=== PATIENT | female | born 1995 | race Two or more races ===

== ENCOUNTER 2016-10-15 00:38 | Observation (INO) | payer MEDICAID ==
--- NOTE | 2016-10-15 01:01 | EDPHY ---
H & P Stated Complaint: suprapubic pain, vomiting, recent constipation HPI/ROS: HPI CHIEF COMPLAINT: Nausea, vomiting, constipation, diarrhea, lower abdominal pain HISTORY OF PRESENT ILLNESS: This patient very pleasant 21-year-old female denies any significant medical history surgical history she presents emergency room 1 o'clock in the morning by private vehicle from lower abdominal pain. Patient states that she has been suffering from constipation recently and has not had a good bowel movement in a few days she thinks about 3. Friend suggested she take laxative she did take a laxative and this gave her some watery loose stools and then she developed nausea vomiting. She tells me she had approximately 10 episodes of vomiting. Nonbilious nonbloody. Watery diarrhea. And now she is complaining of 6/10 right lower quadrant abdominal pain. Denies being . Denies chest pain or shortness of breath. Denies fever. Past Medical History: Denies significant medical history Past Surgical History: Denies significant surgical history Social History: denies use of drugs alcohol tobacco products Family History: Noncontributory ROS REVIEW OF SYSTEMS: A comprehensive 10 point review of systems is otherwise negative aside from elements mentioned in the history of present illness. Exam Constitutional appears well nontoxic, triage nursing summary reviewed, vital signs reviewed, awake/alert. Eyes normal conjunctivae and sclera, EOMI, PERRLA. HENT normal inspection, atraumatic, moist mucus membranes, no epistaxis, neck supple/ no meningismus, no raccoon eyes. Respiratory clear to auscultation bilaterally, normal breath sounds, no respiratory distress, no wheezing. Cardiovascular rate normal, regular rhythm, no murmur, no edema, distal pulses normal. Gastrointestinal soft, tender palpation right lower quadrant, no peritoneal signs, no rebound, no guarding, normal bowel sounds, no distension, no pulsatile mass. Genitourinary no CVA tenderness. Musculoskeletal no midline vertebral tenderness, full range of motion, no calf swelling, no tenderness of extremities, no meningismus, good pulses, neurovascularly intact. Skin pink, warm, & dry, no rash, skin atraumatic. Neurologic awake, alert and oriented x 3, AAOx3, moves all 4 extremities equally, motor intact, sensory intact, CN II-XII intact, normal cerebellar, normal vision, normal speech. Psychiatric normal mood/affect. Heme/Lymph/Immune no lymphadenopathy. Differential diagnosis includes but is not limited to and in no particular order : Acute appendicitis, enteritis, constipation Bowel obstruction, gallbladder disease, diverticulitis, colitis, enteritis, perforated viscus, gastritis, GERD , esophagitis, urinary tract infection, pyelonephritis, kidney stones Medical Decision Making: Plan for this patient this patient had an IV established will obtain blood work including abdominal labs, should be hydrated gently with normal saline, IV Zofran for nausea check urinalysis, test , patient had a CT scan abdomen pelvis with IV contrast to rule out acute appendicitis. Re-evaluation: 0211: CT scan of the abdomen pelvis with IV contrast The results of the study are shows acute appendicitis, dilated appendix, Appendocliths. The study was read by Dr. Hirsch. I viewed the images myself on the PACS system. 0211: this patient has acute appendicitis seen on the CT scan and surgery will be consulted. I have ordered IV Invanz. Patient is made NPO. Patient updated. Re-examination her abdomen is tender right lower quadrant no peritoneal signs. Blood work is noted for white count [id number]. She is hemodynamically stable. Will be admitted to the hospital for surgery for acute appendectomy. Surgery has been consulted. Source: Patient - Personal History LMP (Females 10-55): 15-21 Days Ago Current Tetanus/Diphtheria Vaccine: Yes Current Tetanus Diphtheria and Acellular Pertussis (TDAP): Yes - Medical/Surgical History Hx Asthma: Yes Hx Chronic Respiratory Disease: No Hx Diabetes: No Hx Cardiac Disease: No Hx Renal Disease: No Hx Cirrhosis: No Hx Alcoholism: No Hx HIV/AIDS: No Hx Splenectomy or Spleen Trauma: No Other PMH: asthma - Social History Smoking Status: Never smoked Constitutional: Initial Vital Signs Temperature (C) 37.1 C 10/15/16 00:42 Heart Rate 90 10/15/16 00:42 Respiratory Rate 16 10/15/16 00:42 Blood Pressure 108/68 10/15/16 00:42 O2 Sat (%) 96 10/15/16 00:42 O2 Delivery Mode Room Air Allergies/Adverse Reactions: adhesive tape Allergy (Verified 10/15/16 00:47) honey Allergy (Verified 10/15/16 00:47) Home Medications: Medication Instructions Recorded Ortho Tri-Cyclen Lo Tablet 10/15/16 Medical Decision Making - Data Points Laboratory Results: Laboratory Results 10/15/16 01:15 02/24/17 01:15 10/15/16 10/15/16 10/15/16 01:15 01:15 01:15 WBC 20.78 10^3/uL H 10^3/uL (3.80-9.50) RBC 4.36 10^6/uL 10^6/uL (4.18-5.33) Hgb 13.1 g/dL g/dL (12.6-16.3) Hct 38.2 % % (38.0-47.0) MCV 87.6 fL fL (81.5-99.8) MCH 30.0 pg pg (27.9-34.1) MCHC 34.3 g/dL g/dL (32.4-36.7) RDW 13.1 % % (11.5-15.2) Plt Count 283 10^3/uL 10^3/uL (150-400) MPV 10.1 fL fL (8.7-11.7) Neut % (Auto) 89.4 % H % (39.3-74.2) Lymph % (Auto) 6.1 % L % (15.0-45.0) [place] % (Auto) 3.9 % L % (4.5-13.0) Eos % (Auto) 0.0 % L % (0.6-7.6) Baso % (Auto) 0.2 % L % (0.3-1.7) Nucleat RBC Rel Count 0.0 % % (0.0-0.2) Absolute Neuts (auto) 18.56 10^3/uL H 10^3/uL (1.70-6.50) Absolute Lymphs (auto) 1.27 10^3/uL 10^3/uL (1.00-3.00) Absolute Monos (auto) 0.82 10^3/uL H 10^3/uL (0.30-0.80) Absolute Eos (auto) 0.00 10^3/uL L 10^3/uL (0.03-0.40) Absolute Basos (auto) 0.05 10^3/uL 10^3/uL (0.02-0.10) Absolute Nucleated RBC 0.00 10^3/uL 10^3/uL (0-0.01) Immature Gran % 0.4 % % (0.0-1.1) Immature Gran # 0.08 10^3/uL 10^3/uL (0.00-0.10) Sodium 142 mEq/L mEq/L (134-144) Potassium 4.2 mEq/L mEq/L (3.5-5.2) Chloride 106 mEq/L mEq/L (97-110) Carbon Dioxide 22 mEq/l mEq/l (22-31) Anion Gap 14 mEq/L mEq/L (8-16) BUN 8 mg/dL mg/dL (7-23) Creatinine 0.6 mg/dL mg/dL (0.6-1.0) Estimated GFR > 60 Glucose 110 mg/dL H mg/dL (70-100) Calcium 10.2 mg/dL mg/dL (8.5-10.4) Total Bilirubin 0.9 mg/dL mg/dL (0.1-1.4) Conjugated Bilirubin 0.3 mg/dL mg/dL (0.0-0.5) Unconjugated Bilirubin 0.6 mg/dL mg/dL (0.0-1.1) AST 24 IU/L IU/L (14-46) ALT 34 IU/L IU/L (9-52) Alkaline Phosphatase 97 IU/L IU/L (38-126) Total Protein 8.4 g/dL H g/dL (6.3-8.2) Albumin 4.9 g/dL g/dL (3.5-5.0) Lipase 39.0 IU/L IU/L (23-300) Beta HCG, Qual NEGATIVE Medications Given: Discontinued Medications Sodium Chloride (Ns) 1,000 mls @ 0 mls/hr IV ONCE ONE PRN Reason: Wide Open Stop: 10/15/16 01:04 Last Admin: 10/15/16 01:15 Dose: 1,000 mls Ondansetron HCl (Zofran) 4 mg IVP EDNOW ONE Stop: 10/15/16 01:04 Last Admin: 10/15/16 01:15 Dose: 4 mg Departure - Departure Disposition: [facility] Acute Clinical Impression: Acute appendicitis Qualifiers: Acute appendicitis type: with localized peritonitis Qualified Code(s): K35.3 - Acute appendicitis with localized peritonitis Condition: Fair Referrals: NONE *PRIMARY CARE P,. [Primary Care Provider] - As per Instructions
[2016-10-15] MEDS ORDERED: NS 1,000 ML IV ONE (01:03)
[2016-10-15] MEDS ORDERED: ONDANSETRON 4 MG/2 ML VIAL IVP ONE ×2 (01:03→02:19)
[2016-10-15] MEDS ORDERED: IOPAMIDOL (ISOVUE-300) 100 ML BTL IV ONE (01:07)
[2016-10-15 01:29] LABS: % IMMATURE GRANULYOCYTES 0.4 % (0.0-1.1); ABSOLUTE IMMATURE GRANULOCYTES 0.08 10^3/uL (0.00-0.10); ADD DIFF? NO; ADD MORPH? NO; ADD SCAN? NO; ATYPICAL LYMPHOCYTE FLAG 10 (0-99); FRAGMENT RBC FLAG 0 (0-99); HEMATOCRIT 38.2 % (38.0-47.0); HEMOGLOBIN 13.1 g/dL (12.6-16.3); LEFT SHIFT FLG 0 (0-99); LIPEMIA HEMOLYSIS FLAG 90 (0-99); MEAN CELL HEMOGLOBIN CONCENTR. 34.3 g/dL (32.4-36.7); MEAN CELL VOLUME 87.6 fL (81.5-99.8); MEAN PLATELET VOLUME 10.1 fL (8.7-11.7); PLATELET CLUMPS FLAG 0 (0-99); PLATELET COUNT 283 10^3/uL (150-400); RED BLOOD CELL COUNT 4.36 10^6/uL (4.18-5.33); RED CELL DISTRIBUTION WIDTH 13.1 % (11.5-15.2)
[2016-10-15 01:39] LABS: ALANINE AMINOTRANSFERASE 34 IU/L (9-52); ALBUMIN 4.9 g/dL (3.5-5.0); ALKALINE PHOSPHATASE 97 IU/L (38-126); ANION GAP 14 mEq/L (8-16); ASPARTATE AMINOTRANSFERASE 24 IU/L (14-46); BILIRUBIN,TOTAL 0.9 mg/dL (0.1-1.4); BILIRUBIN-CONJUGATED 0.3 mg/dL (0.0-0.5); BILIRUBIN-UNCONJUGATED 0.6 mg/dL (0.0-1.1); CALCIUM 10.2 mg/dL (8.5-10.4); CARBON DIOXIDE 22 mEq/l (22-31); CHLORIDE 106 mEq/L (97-110); CREATININE 0.6 mg/dL (0.6-1.0); GLOMERULAR FILTRATION RATE > 60; GLUCOSE 110 mg/dL (70-100); POTASSIUM 4.2 mEq/L (3.5-5.2); SODIUM 142 mEq/L (134-144); TOTAL PROTEIN 8.4 g/dL (6.3-8.2)
[2016-10-15] MEDS ORDERED: ERTAPENEM 1 GM in NS 100 ML IV ONE (02:11)
[2016-10-15] MEDS ORDERED: HYDROmorphONE/DILAUDID 1 MG/ML SYR IVP ONE (02:19)
[2016-10-15] MEDS ORDERED: HYDROCODONE/APAP 5/325 TAB PO PRN (02:46)
[2016-10-15] MEDS ORDERED: ONDANSETRON 4 MG/2 ML VIAL IVP PRN (02:47)
[2016-10-15] MEDS ORDERED: SKIN ADHESIVE (DERMABOND) 1 EACH TP ONE (02:51)
[2016-10-15] MEDS ORDERED: BUPIVACAINE 0.5% 30 ML SDV ONE (02:51)
[2016-10-15] MEDS ORDERED: D5W 1/2 NS W/ 20 KCl/L 1,000 ML IV SCH (03:00)
[2016-10-15] MEDS ORDERED: MIDAZOLAM 2 MG/2 ML VIAL ONE (03:26)
[2016-10-15] MEDS ORDERED: fentaNYL 100 MCG/2 ML INJ ONE ×2 (03:32)
[2016-10-15] MEDS ORDERED: PROPOFOL/EMULSION 500 MG/50 ML BOTTLE IV ONE (03:32)
--- NOTE | 2016-10-15 03:43 | GHP ---
DATE OF ADMISSION: 10/15/2016 CHIEF COMPLAINT: Acute appendicitis. HISTORY OF PRESENT ILLNESS: The patient 21-year-old woman, who developed abdominal pain. She thought she was constipated and so she took a couple laxatives. The pain increased in severity. She also had emesis, and she ultimately presented to the emergency room. She had a white count of 20,[address] scan showing appendicitis. Nothing made the pain better. PAST MEDICAL HISTORY: None. PAST SURGICAL HISTORY: Tonsils and adenoids. MEDICATIONS: Ortho Tri-Cyclen. ALLERGIES: No known drug allergies. SOCIAL HISTORY: She denies tobacco use. FAMILY HISTORY: Her father also had appendicitis. REVIEW OF SYSTEMS: 10 point review of system negative except per HPI. PHYSICAL EXAMINATION: General: Pleasant, well nourished, well groomed, lying in bed. HEENT: Normocephalic. No gross hearing deficits. Mucous membranes moist. Pupils equal and round. No scleral icterus. LUNGS: Clear to auscultation bilaterally. No increased work of breathing. CARDIAC: Regular rate. ABDOMEN: Bowel sounds present. Soft, tender in the abdomen. SKIN: Warm and dry. PSYCH: Tearful. IMPRESSION AND PLAN: The patient is a 21-year-old with acute appendicitis. I will take her to the operating room for a laparoscopic appendectomy. The risks and benefits, including, but not limited to, stroke, heart attack, , blood clots, infection, bleeding, damage to bowel or bladder were discussed. Her test was negative. She is receiving Invanz in the ER. She had her questions answered to her satisfaction and signed the informed consent. /[id number]/MODL MTDD
[2016-10-15] MEDS ORDERED: ROCURONIUM 50 MG/5 ML VIAL ONE (04:02)
[2016-10-15] MEDS ORDERED: SUGAMMADEX SODIUM 200 MG/2 ML VIAL IVP ONE (04:03)
--- NOTE | 2016-10-15 04:13 | POSTOPPROG ---
Post Op Note Date of Operation: 10/15/16 Surgeon: Eva Day Anesthesiologist: guillermina Anesthesia: GET(General Endotracheal) Pre-op Diagnosis: acute appy Post-op Diagnosis: same Indication: 21 yo with acute appy Procedure: lap appy Findings: inflamed appendix Inf/Abcess present in the surg proc area at time of surgery?: No Depth: Superfical (Skin SQ) Specimen(s): appendix
--- NOTE | 2016-10-15 04:28 | GOP ---
DATE OF OPERATION: 10/15/2016 SURGEON: Eva Day MD ANESTHESIA: General. ANESTHESIOLOGIST: Mary Alice Paiz MD PREOPERATIVE DIAGNOSIS: Acute appendicitis. POSTOPERATIVE DIAGNOSIS: Acute appendicitis. PROCEDURE PERFORMED: Laparoscopic appendectomy. FINDINGS: Inflamed appendix. SPECIMENS: Appendix. ESTIMATED BLOOD LOSS: 5 cc. INDICATIONS: The patient is a 21-year-old woman who developed abdominal pain. CT scan confirmed ap pendicitis. DESCRIPTION OF PROCEDURE: The patient was brought into the operating room, placed supine on the tab le, and general anesthesia was administered. Her abdomen was prepped and draped in usual sterile fa shion. I infiltrated all sites with 0.5% Marcaine prior to making incisions. I elevated her umbili cus. I inserted the Veress needle, it passed the hanging drop test. Her abdomen insufflated easily to a pressure of 15 mmHg. I placed a 5 mm trocar with a camera at this site. Under direct vision, I placed a 5 mm suprapubic trocar and a 10 mm trocar in the left lower quadrant. I grasped her tip of the appendix. I divided the mesoappendix with the Harmonic and I divided the base with an Endo- JAYLON 45. Hemostasis was achieved on the staple line. I placed the appendix in an EndoCatch bag and retrieved it via the 10 mm trocar. I explored her abdomen. No injuries were noted. I closed the f ascia at the 10 mm trocar site with 0 Vicryl. Skin closed with 4-0 Monocryl. Dermabond applied. S he was awakened in the operating room, extubated, transferred to PACU in stable condition. /[id number]/MODL
[2016-10-15 09:20] VITALS: TEMP 98.2
--- NOTE | 2016-10-15 10:09 | SOAPPROG ---
SOAP Progress Note Assessment/Plan: Assessment: POD # 1 s/p lap appy, much improved if tolerates diet, may dc home S: No nausea. Had popsicle/ Pain controlled O: Sitting in bed, family at bedside Abdomen soft and non tender. Incisions cdi Plan: 10/15/16 10:08 Objective: Vital Signs Temp Pulse Resp BP Pulse Ox 36.8 C 82 16 102/66 94 10/15/16 09:57 10/15/16 09:57 10/15/16 09:57 10/15/16 09:57 10/15/16 09:57 10/14/16 10/15/16 10/16/16 05:59 05:59 05:59 Intake Total 1954 Output Total 10 Balance 194 ICD10 Worksheet Patient Problems: Problems Problem Status Onset Acute appendicitis Acute
[2016-10-15 12:27] VITALS: BP 140/60; PULSE 63; RESP 14; O2SAT 93
== END 2016-10-15 12:20 | disposition home health service (06) ==
LOC: INTOOBSV 02:13 → F1N 05:04
PROVIDERS: ADMIT Surgery; ATTEND Surgery
PROC: 0DTJ4ZZ Resection of Appendix, Percutaneous Endoscopic Approach (ICD-10-PCS; principal; 2016-10-15 03:31)
DX: K35.80 Unspecified acute appendicitis (principal)
CPT/HCPCS: 44970; 74177; G0378; J1170; J1335; J2250; J2405; J2704; J3010; Q9967

== ENCOUNTER 2018-07-31 10:54 | Emergency (ER) | payer MEDICAID, OTHER ==
[2018-07-31] MEDS ORDERED: ONDANSETRON DISINTEGRATING 4 MG TAB PO ONE (11:30)
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
[2018-07-31 13:51] VITALS: BP 108/81
== END 2018-07-31 13:50 | disposition home or self-care (01) ==
DX: S06.0X0A Concussion without loss of consciousness, initial encounter (principal); V49.09XA Driver injured in collision with other motor vehicles in nontraffic accident, initial encounter; Y92.9 Unspecified place or not applicable; Y93.9 Activity, unspecified; Y99.9 Unspecified external cause status